=== PATIENT | female | born 1960 | race Hispanic/Latino ===

== ENCOUNTER 2022-12-30 10:53 | Emergency (ER) | payer SELFPAY ==
[2022-12-30] MEDS ORDERED: Ketorolac Tromethamine 30 MG/ML VIAL ONE (11:59)
[2022-12-30] MEDS ORDERED: Ondansetron PF 4 MG/2 ML Vial ONE (11:59)
[2022-12-30 12:11] LABS: Bilirubin Neg (Negative); Blood, Urine Negative (Negative); Clarity Clear (Clear); Glucose, Urine (Dipstick) >=1000 mg/dL (Negative); Ketone, Urine Negative (Negative); Leukocyte Negative (Negative); Nitrite Negative (Negative); Protein, Urine (Dipstick) Negative (Neg-Trace); Specific Gravity, Urine 1.015 (1.005-1.030); Urobilinogen Normal mg/dL (Less than 2)
[2022-12-30 12:15] LABS: #Monocytes 0.5 10x3/uL (0.0-1.1); #Neutrophils 4.8 10x3/uL (1.5-8.4); %Basophils 0.3 % (0.0-2.0); %Eosinophils 0.5 % (0.0-6.0); %Lymphocytes 16.9 % (18.0-47.0); %Monocytes 8.2 % (0.0-10.0); %Neutrophils 73.9 % (40.0-75.0); Hemoglobin 14.4 g/dL (12.0-15.5); Mean Corpuscular HGB CONC 33.4 g/dL (32.0-36.0); Mean Corpuscular Volume 89.8 fl (81.6-98.3); Mean Platelet Volume 10.6 fl (7.4-10.4); Platelet Count 216 10x3/uL (150-450); RBC Distribution Width 12.1 % (11.5-14.5); White Blood Cell (WBC) Count 6.4 10x3/uL (3.5-10.5)
[2022-12-30 12:35] LABS: ALT (SGPT) 25 U/L (8-55); AST (SGOT) 26 U/L (5-34); Alkaline Phosphatase 117 U/L (40-110); Anion Gap 16 mmol/L (10-20); BUN (Urea Nitrogen) 9 mg/dL (9.8-20.1); Bilirubin, Total 0.6 mg/dL (0.2-1.2); Calc. Creatinine Clearance 0 mL/min (70-130); Calcium 9.3 mg/dL (7.8-10.44); Carbon Dioxide 23 mmol/L (22-29); Chloride 100 mmol/L (98-107); Estimated GFR 64; Globulin 3.1 g/dL (2.4-3.5); Glucose 368 mg/dL (70-105); Lipase 31 U/L (8-78); Potassium 4.4 mmol/L (3.5-5.1); Protein, Total 7.1 g/dL (6.0-8.3); Sodium 135 mmol/L (136-145)
== END 2022-12-30 16:42 | disposition home or self-care (01) ==
LOC: CSHERS 10:53
DX: R10.12 Left upper quadrant pain (principal); R07.89 Other chest pain; E11.9 Type 2 diabetes mellitus without complications; I10 Essential (primary) hypertension; E78.5 Hyperlipidemia, unspecified
CPT/HCPCS: 36415; 36416; 71045; 74177; 80053; 81003; 83690; 83880; 84484; 85025; 85379; 93005; 96361; 96374; 96375; J1885; J2405

== ENCOUNTER 2024-04-10 10:51 | Inpatient (IN) | payer OTHER, SELFPAY ==
[2024-04-10] MEDS ORDERED: Morphine 4 MG/ML VIAL ONE (11:00)
[2024-04-10] MEDS ORDERED: Acetaminophen 500 MG TAB ONE (11:00)
[2024-04-10] MEDS ORDERED: Ondansetron PF 4 MG/2 ML Vial ONE (11:00)
[2024-04-10] MEDS ORDERED: Piperacillin/Tazobactam 4.5 GM VIAL ONE (11:19)
[2024-04-10 11:34] LABS: #Basophils 0.02 10x3/uL (0.0-0.2); #Eosinphils 0.02 10x3/uL (0.0-0.5); #Monocytes 0.23 10x3/uL (0.0-1.1); #Neutrophils 7.72 10x3/uL (1.5-8.4); %Basophils 0.2 % (0.0-2.0); %Eosinophils 0.2 % (0.0-6.0); %Lymphocytes 3.7 % (18.0-47.0); %Monocytes 2.7 % (0.0-10.0); %Neutrophils 91.9 % (40.0-75.0); Hematocrit 42.3 % (34.9-44.5); Mean Corpuscular HGB CONC 35.5 g/dL (32.0-36.0); Mean Corpuscular Hemoglobin 31.2 pg (27.0-33.0); Mean Corpuscular Volume 87.9 fL (81.6-98.3); Mean Platelet Volume 10.1 fL (7.4-10.4); Platelet Count 185 10x3/uL (150-450); RBC Distribution Width 12.1 % (11.5-14.5); Red Blood Cell (RBC) Count 4.81 10x6/uL (3.90-5.03); White Blood Cell (WBC) Count 8.4 10x3/uL (3.5-10.5)
[2024-04-10 11:46] LABS: ALT (SGPT) 234 U/L (8-55); AST (SGOT) 443 U/L (5-34); Albumin 3.8 g/dL (3.4-4.8); Alkaline Phosphatase 189 U/L (40-110); Anion Gap 17 mmol/L (10-20); BUN (Urea Nitrogen) 11 mg/dL (9.8-20.1); Bilirubin, Total 2.4 mg/dL (0.2-1.2); Calc. Creatinine Clearance 0 mL/min (70-130); Calcium 9.4 mg/dL (7.8-10.44); Carbon Dioxide 25 mmol/L (23-31); Chloride 99 mmol/L (98-107); Estimated GFR 66; Globulin 3.5 g/dL (2.4-3.5); Glucose 282 mg/dL (80-115); Lipase 24 U/L (8-78); Potassium 4.1 mmol/L (3.5-5.1); Protein, Total 7.3 g/dL (5.8-8.1); Sodium 137 mmol/L (136-145)
[2024-04-10 11:47] LABS: Troponin I Less than 0.010 ng/mL (< 0.028)
[2024-04-10 11:56] LABS: Critical Call Chem-Lactate ERS.CH3@1150
[2024-04-10 12:02] LABS: Influenza A by NAA Not Detected (NotDetected); Influenza B by NAA Not Detected (NotDetected); SARS-CoV-2 NAA Rapid Test Not Detected (NotDetected)
[2024-04-10 12:41] LABS: MONO NEGATIVE CONTROL ZONE White (Negative) (White); MONO POSITIVE CONTROL Pink Line (Positive) (PINK/RED); Mononucleosis NEGATIVE (NEGATIVE)
[2024-04-10] MEDS ORDERED: Ketorolac Tromethamine 30 MG (1 mL) VIAL ONE (12:47)
[2024-04-10] MEDS ORDERED: Iopamidol 300 61% 100 ML VIAL FS ONE (13:30)
[2024-04-10 14:16] LABS: Bilirubin Neg (Negative); Blood, Urine Negative (Negative); Clarity Clear (Clear); Glucose, Urine (Dipstick) 50 mg/dL (Negative); Ketone, Urine Negative (Negative); Leukocyte Negative (Negative); Nitrite Negative (Negative); Protein, Urine (Dipstick) 15 mg/dl (Neg-Trace); Specific Gravity, Urine 1.005 (1.005-1.030); pH, Urine 6.5 (5.0-9.0)
[2024-04-10 14:40] LABS: Bacteria/HPF 1+ HPF (None Seen); CAUTI Indications for Culture Fever or rigors; RBC/HPF 0-3 HPF (0-3); Squamous Epithelial 0-3 HPF (0-3); Urine Culture Reflex No No; WBC/HPF 0-3 HPF (0-3)
[2024-04-10 15:20] LABS: Lactic Acid 6.2 mmol/L (0.5-2.2)
[2024-04-10] MEDS ORDERED: metroNIDAZOLE 500 MG (100 mL) BAG ONE (15:45)
[2024-04-10 18:11] VITALS: BMI 39.3
[2024-04-10] MEDS ORDERED: Communication Order-Pharmacy FS PRN (18:22)
[2024-04-10] MEDS ORDERED: Dextrose 5% in Water 1,000 ML IV PRN (18:25)
[2024-04-10] MEDS ORDERED: Dextrose 50% Abboject 50 ML SYRINGE SLOW IVP PRN (18:25)
[2024-04-10] MEDS ORDERED: Glucagon 1 MG/ML KIT IM PRN (18:25)
[2024-04-10] MEDS: SODIUM CHLORIDE 0.9% IVPB SCH (18:44)
[2024-04-10] MEDS: VANCOMYCIN IVPB SCH (18:44)
[2024-04-10] MEDS: Ketorolac Tromethamine 30 MG (1 mL) VIAL IVP PRN (18:54)
[2024-04-10] MEDS: Ondansetron PF 4 MG/2 ML Vial IVP PRN (18:55)
[2024-04-10 19:11] LABS: Hematocrit 39.9 % (34.9-44.5); Hemoglobin 13.8 g/dL (12.0-15.5); Mean Corpuscular HGB CONC 34.6 g/dL (32.0-36.0); Mean Corpuscular Hemoglobin 31.2 pg (27.0-33.0); Mean Corpuscular Volume 90.1 fL (81.6-98.3); Platelet Count 173 10x3/uL (150-450); RBC Distribution Width 12.4 % (11.5-14.5); Red Blood Cell (RBC) Count 4.43 10x6/uL (3.90-5.03); White Blood Cell (WBC) Count 13.5 10x3/uL (3.5-10.5)
[2024-04-10 19:26] LABS: ALT (SGPT) 210 U/L (8-55); AST (SGOT) 284 U/L (5-34); Albumin 3.1 g/dL (3.4-4.8); Alkaline Phosphatase 137 U/L (40-110); Anion Gap 14 mmol/L (10-20); BUN (Urea Nitrogen) 10 mg/dL (9.8-20.1); Bilirubin, Total 2.2 mg/dL (0.2-1.2); Calc. Creatinine Clearance 90 mL/min (70-130); Calcium 8.7 mg/dL (7.8-10.44); Carbon Dioxide 24 mmol/L (23-31); Chloride 105 mmol/L (98-107); Estimated GFR 66; Globulin 3.2 g/dL (2.4-3.5); Glucose 190 mg/dL (80-115); Potassium 4.2 mmol/L (3.5-5.1); Protein, Total 6.3 g/dL (5.8-8.1); Sodium 139 mmol/L (136-145)
[2024-04-10 19:57] LABS: Band 22 % (5-11); Lymphocytes 7 % (21-51); Metamyelocyte 1 % (0-0); Monocytes 1 % (0-10)
[2024-04-10 19:59] LABS: Platelet Adequacy Comment Appears Adequate; RBC Morph Comment Within Normal Limits; Toxic Granulation SLIGHT
[2024-04-10 22:04] LABS: Lactic Acid 3.4 mmol/L (0.5-2.2)
[2024-04-10] MEDS: Piperacillin/Tazobactam 3.375 GM in Sodium Chloride 0.9% 100 ML IVPB SCH (22:23)
[2024-04-10] MEDS: Famotidine/PF 20 mg/2ml Vial SLOW IVP SCH (22:23)
[2024-04-10] MEDS: Insulin Lispro 100 UNIT/ML 10 ML VIAL SC PRN (22:44)
[2024-04-11] MEDS: Lactated Ringer's 1,000 ML IV SCH (00:09)
[2024-04-11] MEDS ORDERED: Ondansetron PF 4 MG/2 ML Vial IVP PRN (00:15)
[2024-04-11] MEDS ORDERED: Ondansetron ODT 4 MG TAB SL PRN (00:15)
[2024-04-11] MEDS ORDERED: Acetaminophen 325 MG TAB PO PRN (00:15)
[2024-04-11 03:42] LABS: #Basophils 0.02 10x3/uL (0.0-0.2); #Eosinphils 0.01 10x3/uL (0.0-0.5); #Monocytes 0.61 10x3/uL (0.0-1.1); %Basophils 0.2 % (0.0-2.0); %Eosinophils 0.1 % (0.0-6.0); %Lymphocytes 6.2 % (18.0-47.0); %Monocytes 5.7 % (0.0-10.0); %Neutrophils 87.2 % (40.0-75.0); Hematocrit 35.9 % (34.9-44.5); Hemoglobin 12.3 g/dL (12.0-15.5); Mean Corpuscular HGB CONC 34.3 g/dL (32.0-36.0); Mean Corpuscular Hemoglobin 30.6 pg (27.0-33.0); Mean Corpuscular Volume 89.3 fL (81.6-98.3); Mean Platelet Volume 10.4 fL (7.4-10.4); Platelet Count 164 10x3/uL (150-450); RBC Distribution Width 12.5 % (11.5-14.5); Red Blood Cell (RBC) Count 4.02 10x6/uL (3.90-5.03); White Blood Cell (WBC) Count 10.7 10x3/uL (3.5-10.5)
[2024-04-11 03:48] LABS: ALT (SGPT) 163 U/L (8-55); AST (SGOT) 180 U/L (5-34); Albumin 2.8 g/dL (3.4-4.8); Alkaline Phosphatase 119 U/L (40-110); Anion Gap 11 mmol/L (10-20); BUN (Urea Nitrogen) 10 mg/dL (9.8-20.1); Bilirubin, Total 2.5 mg/dL (0.2-1.2); Calc. Creatinine Clearance 102 mL/min (70-130); Calcium 8.5 mg/dL (7.8-10.44); Carbon Dioxide 25 mmol/L (23-31); Chloride 107 mmol/L (98-107); Estimated GFR 77; Glucose 176 mg/dL (80-115); Potassium 3.6 mmol/L (3.5-5.1); Protein, Total 5.8 g/dL (5.8-8.1); Sodium 139 mmol/L (136-145)
[2024-04-11] MEDS: Enoxaparin 40 MG (0.4 mL) SYRINGE SC SCH (09:33)
[2024-04-11] MEDS: Insulin Lispro 100 UNIT/ML 10 ML VIAL SC PRN (12:35)
[2024-04-11 13:07] LABS: Hemoglobin A1c 10.3 % (4.0-6.0)
[2024-04-11] MEDS: Morphine 2 MG/ML VIAL SLOW IVP SCH (14:25)
[2024-04-11] MEDS: Piperacillin/Tazobactam 3.375 GM in Sodium Chloride 0.9% 100 ML IVPB SCH (22:49)
[2024-04-11] MEDS: Ibuprofen 200 MG TAB PO SCH (23:34)
[2024-04-12 05:42] LABS: #Basophils 0.02 10x3/uL (0.0-0.2); #Eosinphils 0.13 10x3/uL (0.0-0.5); #Monocytes 0.34 10x3/uL (0.0-1.1); %Basophils 0.4 % (0.0-2.0); %Eosinophils 2.4 % (0.0-6.0); %Lymphocytes 17.1 % (18.0-47.0); %Monocytes 6.4 % (0.0-10.0); %Neutrophils 73.3 % (40.0-75.0); Hematocrit 35.8 % (34.9-44.5); Hemoglobin 12.4 g/dL (12.0-15.5); Mean Corpuscular HGB CONC 34.6 g/dL (32.0-36.0); Mean Corpuscular Volume 89.5 fL (81.6-98.3); Mean Platelet Volume 10.4 fL (7.4-10.4); Platelet Count 148 10x3/uL (150-450); RBC Distribution Width 12.7 % (11.5-14.5); White Blood Cell (WBC) Count 5.3 10x3/uL (3.5-10.5)
[2024-04-12 05:59] LABS: ALT (SGPT) 102 U/L (8-55); AST (SGOT) 75 U/L (5-34); Albumin 2.6 g/dL (3.4-4.8); Alkaline Phosphatase 122 U/L (40-110); Anion Gap 11 mmol/L (10-20); BUN (Urea Nitrogen) 8 mg/dL (9.8-20.1); Bilirubin, Total 2.1 mg/dL (0.2-1.2); Calc. Creatinine Clearance 105 mL/min (70-130); Calcium 8.9 mg/dL (7.8-10.44); Carbon Dioxide 25 mmol/L (23-31); Chloride 106 mmol/L (98-107); Estimated GFR 81; Globulin 3.3 g/dL (2.4-3.5); Glucose 213 mg/dL (80-115); Potassium 3.5 mmol/L (3.5-5.1); Protein, Total 5.9 g/dL (5.8-8.1); Sodium 138 mmol/L (136-145)
[2024-04-12 14:52] LABS: Campy jejuni + coli by PCR Negative (Negative); STEC Shiga Toxin 1+2 Negative (Negative); Salmonella spp. by PCR Negative (Negative); Shigella spp + EIEC by PCR Negative (Negative)
[2024-04-12] MEDS: Lidocaine Viscous Sol 2% 15 ml UD Cup SSP PRN (16:05)
[2024-04-12] MEDS: metFORMIN 500 MG TAB PO SCH (16:05)
[2024-04-12] MEDS: Ibuprofen 400 MG TAB PO PRN (20:14)
[2024-04-13 04:31] LABS: #Basophils 0.02 10x3/uL (0.0-0.2); #Monocytes 0.34 10x3/uL (0.0-1.1); #Neutrophils 3.79 10x3/uL (1.5-8.4); %Basophils 0.4 % (0.0-2.0); %Eosinophils 1.9 % (0.0-6.0); %Lymphocytes 20.7 % (18.0-47.0); %Monocytes 6.3 % (0.0-10.0); %Neutrophils 70.5 % (40.0-75.0); Hemoglobin 12.1 g/dL (12.0-15.5); Mean Corpuscular HGB CONC 33.6 g/dL (32.0-36.0); Mean Corpuscular Hemoglobin 30.3 pg (27.0-33.0); Mean Corpuscular Volume 90.2 fL (81.6-98.3); Mean Platelet Volume 10.3 fL (7.4-10.4); Platelet Count 174 10x3/uL (150-450); RBC Distribution Width 12.6 % (11.5-14.5); Red Blood Cell (RBC) Count 3.99 10x6/uL (3.90-5.03); White Blood Cell (WBC) Count 5.4 10x3/uL (3.5-10.5)
[2024-04-13 04:46] LABS: Bilirubin, Direct 1.4 mg/dL (0.1-0.3)
[2024-04-13 04:58] LABS: ALT (SGPT) 80 U/L (8-55); AST (SGOT) 53 U/L (5-34); Albumin 2.8 g/dL (3.4-4.8); Alkaline Phosphatase 152 U/L (40-110); Anion Gap 13 mmol/L (10-20); BUN (Urea Nitrogen) 7 mg/dL (9.8-20.1); Calc. Creatinine Clearance 112 mL/min (70-130); Calcium 9.3 mg/dL (7.8-10.44); Carbon Dioxide 24 mmol/L (23-31); Chloride 107 mmol/L (98-107); Estimated GFR 88; Globulin 3.4 g/dL (2.4-3.5); Glucose 142 mg/dL (80-115); Potassium 3.7 mmol/L (3.5-5.1); Protein, Total 6.2 g/dL (5.8-8.1); Sodium 140 mmol/L (136-145)
[2024-04-13 06:12] VITALS: TEMP 98.3
[2024-04-13 07:15] VITALS: BP 150/86
[2024-04-14 06:29] LABS: EBV VCA IgM <36.0 U/mL (0.0-35.9)
[2024-04-15 22:38] LABS: CMV DNA-PCR Test Negative (Negative)
[2024-04-17 16:40] LABS: VZV Real Time PCR Negative (Negative)
[2024-04-18 00:37] LABS: HSV 1 - DNA Negative (Negative); HSV 2 - DNA Negative (Negative)
== END 2024-04-13 11:20 | disposition home or self-care (01) | DRG 872 ==
LOC: CSHERS 10:51 → CSHTELE 16:15
PROVIDERS: ADMIT Family Medicine; ATTEND Family Medicine
DX: A41.9 Sepsis, unspecified organism (principal); K81.2 Acute cholecystitis with chronic cholecystitis; E87.20 Acidosis, unspecified; A09 Infectious gastroenteritis and colitis, unspecified; E11.9 Type 2 diabetes mellitus without complications; I10 Essential (primary) hypertension; E78.5 Hyperlipidemia, unspecified; E80.6 Other disorders of bilirubin metabolism; R74.01 Elevation of levels of liver transaminase levels; E11.40 Type 2 diabetes mellitus with diabetic neuropathy, unspecified; Z82.49 Family history of ischemic heart disease and other diseases of the circulatory system; Z91.018 Allergy to other foods
CPT/HCPCS: 36415; 36416; 70450; 71045; 71260; 74177; 76705; 78227; 80053; 81001; 82010; 82247; 83036; 83605; 83690; 84145; 84443; 84484; 85025; 86308; 86664; 86665; 87040; 87086; 87497; 87505; 87529; 87798; 93005; A9537; J1650; J1815; J1885; J2270; J2272; J2405; J2543; J3490; J7030; J7120; Q9967; S0028

== ENCOUNTER 2024-06-24 23:10 | Emergency (ER) | payer OTHER ==
[2024-06-24] MEDS ORDERED: Ketorolac Tromethamine 30 MG (1 mL) VIAL ONE (23:49)
[2024-06-25 00:30] LABS: Bilirubin Neg (Negative); Blood, Urine 10 (Negative); Clarity Clear (Clear); Glucose, Urine (Dipstick) 100 mg/dL (Negative); Ketone, Urine 50 mg/dL (Negative); Leukocyte Negative (Negative); Nitrite Negative (Negative); Protein, Urine (Dipstick) 100 mg/dl (Neg-Trace); Specific Gravity, Urine 1.015 (1.005-1.030)
[2024-06-25] MEDS ORDERED: Morphine 4 MG/ML VIAL ONE (00:30)
[2024-06-25 00:42] LABS: ALT (SGPT) 18 U/L (8-55); AST (SGOT) 27 U/L (5-34); Albumin 3.6 g/dL (3.4-4.8); Alkaline Phosphatase 106 U/L (40-110); Anion Gap 15 mmol/L (10-20); BUN (Urea Nitrogen) 9 mg/dL (9.8-20.1); Bilirubin, Total 0.9 mg/dL (0.2-1.2); Calc. Creatinine Clearance 0 mL/min (70-130); Calcium 9.3 mg/dL (7.8-10.44); Carbon Dioxide 22 mmol/L (23-31); Chloride 99 mmol/L (98-107); Estimated GFR 68; Globulin 4.2 g/dL (2.4-3.5); Glucose 195 mg/dL (80-115); Potassium 3.9 mmol/L (3.5-5.1); Protein, Total 7.8 g/dL (5.8-8.1); Sodium 132 mmol/L (136-145)
[2024-06-25 00:58] LABS: #Basophils 0.03 10x3/uL (0.0-0.2); #Monocytes 1.05 10x3/uL (0.0-1.1); #Neutrophils 7.42 10x3/uL (1.5-8.4); %Basophils 0.3 % (0.0-2.0); %Lymphocytes 16.3 % (18.0-47.0); %Monocytes 10.3 % (0.0-10.0); %Neutrophils 72.6 % (40.0-75.0); Hematocrit 41.2 % (34.9-44.5); Hemoglobin 13.9 g/dL (12.0-15.5); Mean Corpuscular HGB CONC 33.7 g/dL (32.0-36.0); Mean Corpuscular Hemoglobin 29.8 pg (27.0-33.0); Mean Corpuscular Volume 88.4 fL (81.6-98.3); Platelet Count 150 10x3/uL (150-450); RBC Distribution Width 12.3 % (11.5-14.5); Red Blood Cell (RBC) Count 4.66 10x6/uL (3.90-5.03); White Blood Cell (WBC) Count 10.2 10x3/uL (3.5-10.5)
[2024-06-25 01:05] LABS: Bacteria/HPF Rare-Few HPF (None Seen); CAUTI Indications for Culture Pelvic or flank pain; Mucous/LPF 1+ LPF (<2+); RBC/HPF 0-3 HPF (0-3); Squamous Epithelial 0-3 HPF (0-3); WBC/HPF 0-3 HPF (0-3)
[2024-06-25 01:06] LABS: Urine Culture Reflex No No
[2024-06-25] MEDS ORDERED: Iopamidol 300 61% 100 ML VIAL FS ONE (11:27)
== END 2024-06-25 02:19 | disposition home or self-care (01) ==
LOC: CSHERS 23:10
DX: R10.32 Left lower quadrant pain (principal); R50.9 Fever, unspecified; E11.9 Type 2 diabetes mellitus without complications
CPT/HCPCS: 36415; 74177; 80053; 81001; 83605; 83690; 85025; 96374; J1885; J2272; Q9967

== ENCOUNTER 2024-06-29 11:45 | Outpatient (CLI) | payer OTHER ==
[2024-06-29 13:59] LABS: ALT (SGPT) 25 U/L (8-55); AST (SGOT) 32 U/L (5-34); Albumin 3.4 g/dL (3.4-4.8); Alkaline Phosphatase 120 U/L (40-110); Bilirubin, Direct 0.3 mg/dL (0.1-0.3); Bilirubin, Total 0.6 mg/dL (0.2-1.2); Protein, Total 7.1 g/dL (5.8-8.1)
== END 2024-06-29 11:46 | disposition home or self-care (01) ==
LOC: CSHLAB 11:45
PROVIDERS: ATTEND Surgery
DX: Z01.818 Encounter for other preprocedural examination (principal); K80.10 Calculus of gallbladder with chronic cholecystitis without obstruction
CPT/HCPCS: 80076; 93005; 93010

== ENCOUNTER 2024-07-02 05:53 | Day surgery (SDC) | payer OTHER ==
[2024-06-29 12:33] VITALS: BMI 35.9
[2024-07-02 07:18] LABS: PTT 24.4 sec (22.0-33.0); Prothrombin Time 11.1 sec (9.5-12.1)
[2024-07-02] MEDS ORDERED: Bupivacaine/Epinephrine 0.25% 30 ML VIAL ONE (07:25)
[2024-07-02] MEDS ORDERED: Midazolam HCl 2 mg/2 ml Vial ONE (08:09)
[2024-07-02] MEDS ORDERED: PROPOFOL 20 ML ONE (08:09)
[2024-07-02] MEDS ORDERED: Rocuronium Bromide 10 MG/ML (10ML VIAL) ONE (08:09)
[2024-07-02] MEDS ORDERED: Dexmedetomidine 200 MCG/2 ML VIAL ONE (08:09)
[2024-07-02] MEDS ORDERED: Ondansetron PF 4 MG/2 ML Vial ONE (08:09)
[2024-07-02] MEDS ORDERED: Dexamethasone 20 MG/5 ML VIAL ONE (08:09)
[2024-07-02] MEDS ORDERED: Ketorolac Tromethamine 30 MG (1 mL) VIAL ONE (08:09)
[2024-07-02] MEDS ORDERED: fentaNYL 50 mcg/mL 1 mL Vial ONE ×2 (08:09→09:41)
[2024-07-02] MEDS ORDERED: SUGAMMADEX SODIUM 200 MG/2 ML VIAL ONE (08:09)
[2024-07-02] MEDS ORDERED: CEFAZOLIN 2 GM VIAL ONE (08:13)
[2024-07-02] MEDS ORDERED: HYDROcodone/Acetaminophen 5/325 mg Tablet ONE (09:54)
== END 2024-07-02 11:00 | disposition home or self-care (01) ==
LOC: CSHSDC 05:53
PROVIDERS: ATTEND Surgery
PROC: 0FT44ZZ Resection of Gallbladder, Percutaneous Endoscopic Approach (ICD-10-PCS; principal; 2024-07-02)
DX: K80.10 Calculus of gallbladder with chronic cholecystitis without obstruction (principal); E11.9 Type 2 diabetes mellitus without complications; E78.00 Pure hypercholesterolemia, unspecified; G47.33 Obstructive sleep apnea (adult) (pediatric); R51.9 Headache, unspecified; Z68.35 Body mass index [BMI] 35.0-35.9, adult; Z91.013 Allergy to seafood; Z79.899 Other long term (current) drug therapy
CPT/HCPCS: 36415; 85610; 85730; 88304; C1889; J1100; J1885; J2250; J2405; J2704; J3010